=== PATIENT | female | born 1995 | race Caucasian/White ===

== ENCOUNTER 2022-02-19 16:38 | Observation (INO) ==
[2022-02-19] MEDS ORDERED: Morphine Sulfate 2 MG/ML SYRINGE IVP ONE (18:50)
[2022-02-19 19:08] LABS: Basophils # 0.1 K/mcL (0.0-0.2); Basophils % 0.8 %; Eosinophils # 0.3 K/mcL (0.0-0.6); Eosinophils % 2.6 %; Hematocrit 39.4 % (35.3-44.9); Immature Granulocytes % 0.5 % (0-4); Mean Corpuscular Hemoglobin 29.6 pg (28.0-33.3); Mean Corpuscular Volume 89.7 fL (83.0-100.0); Mean Platelet Volume 10.9 fL (9.4-12.4); Monocytes # 0.6 K/mcL (0.0-1.3); Monocytes % 5.4 %; Neutrophils # 7.4 K/mcL (1.6-8.9); Platelet Count 352 K/mcL (140-400); Red Blood Count 4.39 M/mcL (3.82-4.97); Red Cell Distribution Width 12.7 % (11.5-14.5); Segmented Neutrophils % 64.7 %; White Blood Count 11.4 K/mcL (4.3-11.1)
[2022-02-19 19:29] LABS: BUN/Creatinine Ratio 19 (6-26); Blood Urea Nitrogen 13 mg/dL (6-20); Calcium 9.7 mg/dL (8.6-10.3); Carbon Dioxide 26 mEq/L (23-29); Chloride 106 mEq/L (98-107); Glucose 87 mg/dL (70-105); Osmolality,Calculated 289 (280-300); Potassium 3.8 mEq/L (3.5-5.1); Sodium 140 mEq/L (136-145)
[2022-02-19 19:35] LABS: Troponin I 0.05 ng/mL (< 0.04)
[2022-02-19 19:44] LABS: VBG HCO3 26 mEq/L (21-27); VBG PCO2 47 mmHg (41-51); VBG PH 7.35 pH Units (7.32-7.42); VBG PO2 42 mmHg (25-50)
[2022-02-19] MEDS ORDERED: Aspirin 81 MG TAB.CHEW PO ONE (20:08)
[2022-02-19 20:24] LABS: Influenza A PCR Negative (Negative); Influenza B PCR Negative (Negative); Resp. Syncytial Virus PCR Negative (Negative); SARS-CoV-2 by PCR (In House) Negative (Negative)
[2022-02-19] MEDS: Nitroglycerin 0.4 MG TAB.SUBL SL PRN ×3 (20:39→20:51)
[2022-02-19] MEDS ORDERED: *HR* HYDROcodone/Acet 5/325 mg TABLET PO PRN (21:14)
[2022-02-19] MEDS ORDERED: Naloxone 0.4 MG/ML INJ IVP PRN (21:14)
[2022-02-19] MEDS ORDERED: Ondansetron 4 MG/2 ML VIAL IVP PRN (21:14)
[2022-02-19] MEDS ORDERED: *HR* OxyCODONE Immed Rel 5 MG TABLET PO PRN (21:14)
[2022-02-19] MEDS ORDERED: Acetaminophen 325 MG TABLET PO PRN (21:14)
[2022-02-19] MEDS ORDERED: Melatonin 3 MG TABLET PO PRN (21:14)
[2022-02-19 23:28] LABS: Amphetamine Screen,Urine Negative ng/mL (Cutoff=1000); Barbiturate Screen,Urine Negative ng/mL (Cutoff=200); Benzodiazepines Screen,Urine Negative ng/mL (Cutoff=200); Cannabinoid Screen,Urine Negative ng/mL (Cutoff = 50); Cocaine Screen,Urine Negative ng/mL (Cutoff= 300); Opiate Screen,Urine Negative ng/mL (Cutoff=300); Phencyclidine Screen,Urine Negative ng/mL (Cutoff=25)
[2022-02-19] MEDS ORDERED: Iopamidol - 370 500 ML MLS IVP ONE (23:55)
[2022-02-20 02:37] LABS: BUN/Creatinine Ratio 17 (6-26); Blood Urea Nitrogen 12 mg/dL (6-20); Calcium 9.1 mg/dL (8.6-10.3); Carbon Dioxide 27 mEq/L (23-29); Chloride 106 mEq/L (98-107); Chol/HDL Ratio 6.1 (0-4.9); Cholesterol 170 mg/dL (< 200); Glucose 130 mg/dL (70-105); HDL Cholesterol 28 mg/dL (40-59); LDL Cholesterol,Calculated 106 mg/dL (< 100); Magnesium 2.2 mg/dL (1.6-2.6); Osmolality,Calculated 288 (280-300); Potassium 3.5 mEq/L (3.5-5.1); Sodium 138 mEq/L (136-145); Triglycerides 178 mg/dL (< 150)
[2022-02-20 02:49] LABS: Basophils # 0.1 K/mcL (0.0-0.2); Basophils % 0.9 %; Eosinophils # 0.3 K/mcL (0.0-0.6); Eosinophils % 2.8 %; Hematocrit 37.3 % (35.3-44.9); Hemoglobin 12.5 g/dL (11.5-15.4); Immature Granulocytes % 0.4 % (0-4); Lymphocytes # 3.8 K/mcL (0.6-4.6); Mean Corpuscular HGB Conc 33.5 g/dL (31.6-35.5); Mean Corpuscular Hemoglobin 29.9 pg (28.0-33.3); Mean Corpuscular Volume 89.2 fL (83.0-100.0); Mean Platelet Volume 10.8 fL (9.4-12.4); Monocytes # 0.6 K/mcL (0.0-1.3); Neutrophils # 6.4 K/mcL (1.6-8.9); Platelet Count 310 K/mcL (140-400); Red Blood Count 4.18 M/mcL (3.82-4.97); Red Cell Distribution Width 12.7 % (11.5-14.5); Segmented Neutrophils % 56.9 %; White Blood Count 11.3 K/mcL (4.3-11.1)
[2022-02-20 02:51] LABS: INR 1.1; Prothrombin Time 12.1 Seconds (9.4-12.1)
[2022-02-20] MEDS: *HR* Enoxaparin 40 MG/0.4 ML SYRINGE SQ SCH (06:04)
[2022-02-20 19:41] VITALS: O2SAT 99
[2022-02-21 04:24] VITALS: BP 102/69
[2022-02-21 07:09] VITALS: PULSE 80; TEMP 97.8
[2022-02-21] MEDS: *HR* Enoxaparin 40 MG/0.4 ML SYRINGE SQ SCH (08:43)
[2022-02-21] MEDS ORDERED: Flu Vac QV 22-23 (6MOS UP)/PF 0.5 ML SYRINGE IM ONE (10:31)
== END 2022-02-21 11:00 | disposition home or self-care (01) ==
LOC: 3ANU 16:38 → EMEROOARM 16:38 → 3ANU 22:04
PROVIDERS: ADMIT Internal Medicine; ATTEND Internal Medicine